=== PATIENT | male | born 1950 | race African-American/Black ===

== ENCOUNTER 2024-11-09 06:52 | Inpatient (IN) | payer MEDICARE, MEDICAID ==
[~2024-11-09] VITALS: Ht 182.9 cm; Wt 120.0 kg
[2024-11-09 08:40] LABS: BASOPHILS % 0.7 % (0.0-2.0); EOSINOPHILS % 8.0 % (0.0-5.0); HEMATOCRIT. 39.7 % (42.0-52.0); HEMOGLOBIN. 13.0 g/dL (14.0-18.0); LYMPHOCYTES % 39.2 % (20.0-50.0); MEAN PLATELET VOLUME 8.5 fl (7.4-10.4); MONOCYTES % 11.8 % (2.0-8.0); NEUTROPHILS % 40.3 % (40.0-76.0); PLATELET 188 x1000/uL (130-400); RED BLOOD CELL COUNT 4.18 mill/uL (4.7-6.1); RED CELL DISTRIBUTION WIDTH 14.0 % (11.6-14.6)
[2024-11-09 08:58] LABS: CREATININE 1.5 mg/dL (0.6-1.3); UREA NITROGEN BLOOD 13 mg/dL (9-23)
[2024-11-09 08:59] LABS: TROPONIN I HIGH SENSITIVITY < 4 ng/L (3.0-53)
[2024-11-09 11:02] VITALS: BP 202/135; PULSE 70; RESP 18; TEMP 35.862
[2024-11-09] MEDS: HYDRALAZINE 20MG/ML VIAL IV PRN (11:07)
[2024-11-09 12:00] VITALS: BP 161/83; PULSE 80; RESP 20; TEMP 36.3; O2SAT 100
[2024-11-09] MEDS ORDERED: ONDANSETRON HCL 4MG/2ML INJ IV PRN (12:00)
[2024-11-09] MEDS ORDERED: IPRATROPIUM/ALBUTEROL 0.5-3(2.5)MG/3ML NEB HHN PRN (12:00)
[2024-11-09] MEDS ORDERED: HYDROCODONE/ACETAMINOPHEN 5/325MG TABLET PO PRN (12:00)
[2024-11-09] MEDS ORDERED: NALOXONE HCL 0.4MG/ML VIAL IV PRN (12:00)
[2024-11-09] MEDS ORDERED: ACETAMINOPHEN 325MG TABLET PO PRN (12:00)
[2024-11-09 13:20] LABS: HEPATITIS C AB REACTIVE (Pos) (Negative)
[2024-11-09] MEDS ORDERED: GABA-1180 MT (14:22)
[2024-11-09] MEDS ORDERED: LISI20TA31 MT (14:22)
[2024-11-09] MEDS ORDERED: DORZ10DR9 EACHEYE (14:22)
[2024-11-09] MEDS ORDERED: HYDR50TA40 MT (14:22)
[2024-11-09] MEDS ORDERED: AMLO10TA80 MT (14:22)
[2024-11-09] MEDS: LEVOFLOXACIN 750MG PREMIX 150 ML IV SCH (14:24)
[2024-11-09 16:00] VITALS: BP 151/77; PULSE 90; RESP 18; TEMP 36.3; O2SAT 98
[2024-11-09 18:38] LABS: CREATINE KINASE MB FRACTION 4.3 ng/mL (0.5-3.6)
[2024-11-09 18:39] LABS: TROPONIN I HIGH SENSITIVITY 4 ng/L (3.0-53)
[2024-11-09 20:00] VITALS: BP 146/86; PULSE 79; RESP 17; TEMP 36.5; O2SAT 98
[2024-11-09 20:28] VITALS: BP 146/86; PULSE 79; RESP 17; TEMP 36.5; O2SAT 98
[2024-11-09] MEDS: ENOXAPARIN 40MG/0.4ML SYR SUBCUT SCH (21:00)
[2024-11-10] VITALS: BP 179/88; PULSE 84; RESP 18; TEMP 36.5; O2SAT 97
[2024-11-10 00:07] LABS: CREATINE KINASE MB FRACTION 5.1 ng/mL (0.5-3.6)
[2024-11-10 00:08] LABS: TROPONIN I HIGH SENSITIVITY 4.0 ng/L (3.0-53)
[2024-11-10 04:00] VITALS: BP 171/84; PULSE 77; RESP 18; TEMP 36; O2SAT 99
[2024-11-10 07:09] LABS: BASOPHILS % 0.6 % (0.0-2.0); EOSINOPHILS % 6.7 % (0.0-5.0); HEMATOCRIT. 42.8 % (42.0-52.0); HEMOGLOBIN. 14.1 g/dL (14.0-18.0); LYMPHOCYTES % 43.9 % (20.0-50.0); MEAN PLATELET VOLUME 8.7 fl (7.4-10.4); MONOCYTES % 9.4 % (2.0-8.0); NEUTROPHILS % 39.4 % (40.0-76.0); PLATELET 173 x1000/uL (130-400); RED BLOOD CELL COUNT 4.50 mill/uL (4.7-6.1); RED CELL DISTRIBUTION WIDTH 14.2 % (11.6-14.6)
[2024-11-10 07:14] LABS: T4 FREE 1.22 ng/dL (0.89-1.76)
[2024-11-10 07:15] LABS: CREATININE 1.4 mg/dL (0.6-1.3); TRIGLYCERIDE 133 mg/dL (0-150); UREA NITROGEN BLOOD 14 mg/dL (9-23)
[2024-11-10 07:16] LABS: LDL CHOLESTEROL 140 mg/dL (5-100)
[2024-11-10 08:00] VITALS: BP 157/88; PULSE 82; RESP 18; TEMP 36.4; O2SAT 98
[2024-11-10] MEDS ORDERED: LYR25 MT (08:45)
[2024-11-10] MEDS ORDERED: LATA2.5D14 EACHEYE (08:46)
[2024-11-10] MEDS ORDERED: *PATIENT'S OWN MEDICATION STORAGE XX SCH (11:15)
[2024-11-10 12:00] VITALS: BP 160/91; PULSE 88; RESP 20; TEMP 36.3; O2SAT 98
[2024-11-10 16:00] VITALS: BP 156/75; PULSE 88; RESP 20; TEMP 36.3; O2SAT 98
[2024-11-10] MEDS: LEVOFLOXACIN 750MG PREMIX 150 ML IV SCH (18:29)
[2024-11-10] MEDS: GUAIFENESIN 600MG ER TABLET PO SCH (18:41)
[2024-11-10] MEDS: ISOSORBIDE MONONITRATE 60MG TABLET SR 24HR PO SCH (18:42)
[2024-11-10] MEDS: DORZOLAM/TIMOLOL 2%/0.5% OPHTH DROPS 10ML BOTHEYE SCH (19:06)
[2024-11-11] VITALS: BP 134/75; PULSE 80; RESP 17; TEMP 37.1; O2SAT 96
[2024-11-11] MEDS ORDERED: ZOLPIDEM TARTRATE 5MG TABLET PO PRN (00:15)
[2024-11-11] MEDS: PROMETHAZINE/DEXTROMETHORPHAN 6.25-15MG/5ML PO PRN (00:16)
[2024-11-11 04:00] VITALS: BP 132/59; PULSE 75; RESP 18; TEMP 37; O2SAT 98
[2024-11-11 08:00] VITALS: BP 115/54; PULSE 79; RESP 20; TEMP 36.3
[2024-11-11 10:48] LABS: HEMATOCRIT. 40.4 % (42.0-52.0); HEMOGLOBIN. 13.7 g/dL (14.0-18.0); MEAN PLATELET VOLUME 9.6 fl (7.4-10.4); PLATELET 193 x1000/uL (130-400); RED BLOOD CELL COUNT 4.34 mill/uL (4.7-6.1); RED CELL DISTRIBUTION WIDTH 14.1 % (11.6-14.6)
[2024-11-11 11:08] LABS: CREATININE 1.5 mg/dL (0.6-1.3); UREA NITROGEN BLOOD 17.0 mg/dL (9-23)
[2024-11-11 12:00] VITALS: BP 134/75; PULSE 80; RESP 17; TEMP 37.1; O2SAT 96
[2024-11-11 16:00] VITALS: BP 151/80; PULSE 85; RESP 18; TEMP 36.2; O2SAT 96
[2024-11-11 20:00] VITALS: BP 174/94; PULSE 80; RESP 18; TEMP 35.9; O2SAT 98
[2024-11-11] MEDS: BENZONATATE 100MG CAPSULE PO PRN (22:04)
[2024-11-12] VITALS (8 sets, daily range): BP systolic 123–174; BP diastolic 69–94; PULSE 72–84; RESP 18–20; TEMP 35.9–36.6; O2SAT 95–99
[2024-11-12] MEDS: IPRATROPIUM/ALBUTEROL 0.5-3(2.5)MG/3ML NEB HHN SCH (02:46)
[2024-11-12 07:54] LABS: BAND% 12.0 % (1.0-6.0); EOSINOPHILS % MANUAL 8.0 % (0.0-5.0); LYMPHOCYTES % MANUAL 37.0 % (20.0-50.0); METAMYELOCYTES % 1.0 % (0-0); MONOCYTES % MANUAL 12.0 % (2.0-8.0); NEUTROPHILS % MANUAL 30.0 % (45.0-75.0); NUCLEATED RED BLOOD CELLS 3 /100 WBC; PLATELET ESTIMATE NORMAL
[2024-11-12] MEDS: PREDNISONE 20MG TABLET PO SCH (09:58)
[2024-11-12 11:09] LABS: BASOPHILS % 0.7 % (0.0-2.0); EOSINOPHILS % 5.5 % (0.0-5.0); HEMATOCRIT. 42.3 % (42.0-52.0); HEMOGLOBIN. 13.9 g/dL (14.0-18.0); LYMPHOCYTES % 43.8 % (20.0-50.0); MEAN PLATELET VOLUME 8.6 fl (7.4-10.4); MONOCYTES % 9.2 % (2.0-8.0); NEUTROPHILS % 40.8 % (40.0-76.0); PLATELET 203 x1000/uL (130-400); RED BLOOD CELL COUNT 4.43 mill/uL (4.7-6.1); RED CELL DISTRIBUTION WIDTH 13.9 % (11.6-14.6)
[2024-11-12 11:18] LABS: CREATININE 1.5 mg/dL (0.6-1.3); UREA NITROGEN BLOOD 17.0 mg/dL (9-23)
[2024-11-12] MEDS ORDERED: GUAI600T26 MT (13:50)
[2024-11-12] MEDS ORDERED: ALBU90AE INH (13:50)
[2024-11-12] MEDS ORDERED: P20 PO (13:50)
[2024-11-12] MEDS ORDERED: FLUT1AER INH (13:50)
== END 2024-11-12 16:44 | disposition home or self-care (01) | DRG 305 ==
LOC: ER 07:16 → 5WST 09:33 → EDBEDREQTM 09:36 → EDBEDREQ 09:36 → ENRESERV 09:57 → 5WST 10:43
PROVIDERS: ADMIT Internal Medicine; ATTEND Internal Medicine
DX: I16.0 Hypertensive urgency (principal); I10 Essential (primary) hypertension; J06.9 Acute upper respiratory infection, unspecified; Z79.51 Long term (current) use of inhaled steroids; R06.03 Acute respiratory distress; Z79.899 Other long term (current) drug therapy; Z86.73 Personal history of transient ischemic attack (TIA), and cerebral infarction without residual deficits; Z87.891 Personal history of nicotine dependence
CPT/HCPCS: 36415; 71045; 71250; 80048; 80061; 82550; 82553; 83880; 84145; 84439; 84443; 84481; 84484; 85025; 86705; 87340; 93005; 93306; 94070; 94640; 94664; 94760; 98960; 99285; A4606; J0360; J1650; J1956; J7512

== ENCOUNTER 2024-11-27 00:15 | Emergency (ER) | payer MEDICARE, MEDICAID ==
[~2024-11-27] VITALS: Ht 182.9 cm; Wt 107.0 kg
[~2024-11-27 00:15] MED LIST: ALBU90AE INH; AMLO10TA80 MT; DORZ10DR9 EACHEYE; FLUT1AER INH; GABA-1180 MT; GUAI600T26 MT; LATA2.5D14 EACHEYE; LYR25 MT; P20 PO
[2024-11-27 01:13] VITALS: TEMP 36.7; O2SAT 98
[2024-11-27] MEDS ORDERED: NAPR-681 MT (02:14)
[2024-11-27] MEDS ORDERED: HYDR453.3 TP (02:14)
[2024-11-27] MEDS ORDERED: DIPH25CA83 PO (02:14)
[2024-11-27] MEDS ORDERED: DOXY-461 MT (02:14)
[2024-11-27 02:24] VITALS: BP 123/66; PULSE 88; RESP 16; O2SAT 99
== END 2024-11-27 02:24 | disposition home or self-care (01) ==
LOC: ER 00:42
DX: L03.311 Cellulitis of abdominal wall (principal); I10 Essential (primary) hypertension; Z90.49 Acquired absence of other specified parts of digestive tract; Z79.899 Other long term (current) drug therapy; Z79.52 Long term (current) use of systemic steroids; Z79.51 Long term (current) use of inhaled steroids; Z79.1 Long term (current) use of non-steroidal anti-inflammatories (NSAID)
CPT/HCPCS: 99283

== ENCOUNTER 2024-12-23 14:11 | Emergency (ER) | payer BC, MEDICAID ==
[~2024-12-23] VITALS: Ht 182.9 cm; Wt 108.0 kg
[~2024-12-23 14:11] MED LIST changes: +DIPH25CA83 PO; +DOXY-461 MT; +HYDR453.3 TP; +NAPR-681 MT
[2024-12-23 14:45] LABS: BASOPHILS % 0.4 % (0.0-2.0); EOSINOPHILS % 2.2 % (0.0-5.0); HEMATOCRIT. 40.8 % (42.0-52.0); HEMOGLOBIN. 13.5 g/dL (14.0-18.0); LYMPHOCYTES % 40.7 % (20.0-50.0); MEAN PLATELET VOLUME 8.5 fl (7.4-10.4); MONOCYTES % 11.6 % (2.0-8.0); NEUTROPHILS % 45.1 % (40.0-76.0); PLATELET 169 x1000/uL (130-400); RED BLOOD CELL COUNT 4.34 mill/uL (4.7-6.1); RED CELL DISTRIBUTION WIDTH 14.3 % (11.6-14.6)
[2024-12-23 14:57] LABS: CREATININE 1.4 mg/dL (0.6-1.3); INR 1.1; UREA NITROGEN BLOOD 12 mg/dL (9-23)
[2024-12-23 14:58] LABS: ASPARTATE AMINOTRANSFERASE 17 IU/L (<34)
[2024-12-23 14:59] LABS: BILIRUBIN DIRECT 0.2 mg/dL (<=3.0); BILIRUBIN TOTAL 0.9 mg/dL (0.1-1.0); PROTEIN TOTAL 6.8 g/dL (6.0-8.3); TROPONIN I HIGH SENSITIVITY 9 ng/L (3.0-53)
[2024-12-23] MEDS ORDERED: METHYLPREDNISOLONE 40MG/ML INJ IV ONE (15:30)
[2024-12-23] MEDS: ALBUTEROL (0.083%) 2.5MG/3ML NEB HHN ONE (15:37)
[2024-12-23] MEDS: METHYLPREDNISOLONE SOD SUCC 125MG/2ML (ACT-O-VIAL) IV SCH (15:39)
[2024-12-23 15:52] VITALS: PULSE 85; RESP 16; O2SAT 100
[2024-12-23] MEDS ORDERED: P50 MT (15:59)
[2024-12-23] MEDS ORDERED: ALBU18HF2 IH (15:59)
[2024-12-23 16:12] VITALS: BP 152/71; PULSE 96; RESP 17; TEMP 36.9; O2SAT 95
== END 2024-12-23 16:13 | disposition home or self-care (01) ==
LOC: ER 14:12
DX: J44.1 Chronic obstructive pulmonary disease with (acute) exacerbation (principal); H40.9 Unspecified glaucoma; I10 Essential (primary) hypertension; Z79.899 Other long term (current) drug therapy; Z90.49 Acquired absence of other specified parts of digestive tract
CPT/HCPCS: 99285; 96374; 71045; 80076; 80048; 83880; 85025; 85610; 85730; 84484; 36415; 94640; 93005; J2919; 94070; 94664